=== PATIENT | female | born 1995 | race Two or more races ===

== ENCOUNTER 2020-11-19 23:02 | Emergency (ER) | payer SELFPAY ==
[~2020-11-19] VITALS: Ht 157.5 cm; Wt 84.5 kg
[2020-11-20 00:21] LABS: BASO # 0.1 x10^3/uL (0.0-0.2); BASO % 1 % (0-3); EOS # 0.2 x10^3/uL (0.0-0.7); EOS % 2 % (0-3); HEMATOCRIT 38.8 % (36.0-47.0); LYMPH # 1.5 x10^3/uL (1.0-4.8); LYMPH % 18 % (24-48); MEAN CORPUSCULAR HEMOGLOBIN 28 pg (25-35); MEAN CORPUSCULAR HGB CONC 34 g/dL (31-37); MEAN CORPUSCULAR VOLUME 84 fL (79-100); MONO # 0.6 x10^3/uL (0.0-1.1); MONO % 7 % (0-9); NEUT # 6.2 x10^3/uL (1.8-7.7); NEUT % 72 % (31-73); PLATELET COUNT 282 x10^3/uL (140-400); RED BLOOD COUNT 4.64 x10^6/uL (3.50-5.40); WHITE BLOOD COUNT 8.5 x10^3/uL (4.0-11.0)
[2020-11-20 00:26] LABS: CREATININE 0.9 mg/dL (0.6-1.0); GFR 75.1; POTASSIUM 3.8 mmol/L (3.5-5.1)
[2020-11-20] MEDS ORDERED: IV NORMAL SALINE 1000ML BAG 1,000 ML IV ONE (00:30)
[2020-11-20 00:33] LABS: ALBUMIN 3.8 g/dL (3.4-5.0); TOTAL BILIRUBIN 0.2 mg/dL (0.2-1.0); TOTAL PROTEIN 7.7 g/dL (6.4-8.2)
--- NOTE | 2020-11-20 00:54 | RAD ---
First trimester OB ultrasound dated 11/12/2020. No comparison available. CLINICAL INDICATION: Pelvic pain and vaginal bleeding. FINDINGS: Gestational sac within the endometrial canal without clear evidence of pole or cardiac activity . The mean sac diameter is estimated at 0.82 cm, correlating with a 5 week 4 day gestation. Yolk sac is visualized. No subchorionic collection. Uterus measures 9.8 x 5.4 x 4.8 cm. No focal uterine mass. Right ovary measures 3.2 x 2.2 x 1.9 cm. L eft ovary measures 2.7 x 1.1 x 1.0 cm. Normal color Doppler flow. No adnexal mass or free fluid. IMPRESSION: 1. Gestational sac and yolk sac identified within the endometrial canal. There is no discernible feta l pole or cardiac activity this time. This most likely represents a early viable IUP, although blight ed ovum is not excluded. Recommend correlation with beta-hCG values and follow-up imaging if indicate d. 2. No apparent adnexal mass or free fluid. Electronically signed by: Otto Chaney MD (11/20/2020 12:52 AM) [facility]
--- NOTE | 2020-11-20 01:02 | PHYS DOC ---
Past Medical History Past Medical History: No Pertinent History Past Surgical History: No Surgical History Smoking Status: Former Smoker Alcohol Use: None General Adult EDM: Chief Complaint: ABDOMINAL PAIN HPI: HPI: Patient is a 25 year old female who presented to ER due to low abdominal pain for 2 days. Today she noticed some blood in her urine and when she wiped she noticed some blood on the tissue. Patient says she is about 6 weeks her last menstrual period was on 10/09/2020. This is her second . Patient is scheduled to see her [facility] doctor next Wednesday. Patient denies any fever, no nausea vomiting, no chest pain, no trouble breathing. Review of Systems: Review of Systems: Constitutional: Denies fever or chills. [] Eyes: Denies change in visual acuity. [] HENT: Denies nasal congestion or sore throat. [] Respiratory: Denies cough or shortness of breath. [] Cardiovascular: Denies chest pain or edema. [] GI: Positive for no abdominal pain, no nausea vomiting : Positive for blood in his urine Musculoskeletal: Denies back pain or joint pain. [] Integument: Denies rash. [] Neurologic: Denies headache, focal weakness or sensory changes. [] Endocrine: Denies polyuria or polydipsia. [] Lymphatic: Denies swollen glands. [] Psychiatric: Denies depression or anxiety. [] Heart Score: C/O Chest Pain: N/A Risk Factors: Risk Factors: DM, Current or recent (<one month) smoker, HTN, HLP, family hist ory of CAD, obesity. Risk Scores: Score 0 - 3: 2.5% MACE over next 6 weeks - Discharge Home Score 4 - 6: 20.3% MACE over next 6 weeks - Admit for Clinical Observation Score 7 - 10: 72.7% MACE over next 6 weeks - Early Invasive Strategies Current Medications: Current Medications Medications (Trade) Dose Ordered Sig/Kam Start Time Stop Time Status Last Admin Dose Admin Sodium Chloride 1,000 ml @ 1,000 mls/hr 1X ONCE 11/20/20 00:30 11/20/20 01:29 11/20/20 00:30 1,000 MLS/HR Allergies: Allergies: Allergies Coded Allergies Type Severity Reaction Last Updated Verified No Known Drug Allergies 11/19/20 No Physical Exam: PE: Constitutional: Well developed, well nourished, no acute distress, non-toxic appearance. [] HENT: Normocephalic, atraumatic, bilateral external ears normal, oropharynx moist, no oral exudates, nose normal. [] Eyes: PERRLA, EOMI, conjunctiva normal, no discharge. [] Neck: Normal range of motion, no tenderness, supple, no stridor. [] Cardiovascular:Heart rate regular rhythm, no murmur [] Lungs & Thorax: Bilateral breath sounds clear to auscultation [] Abdomen: Bowel sounds normal, soft, no tenderness, no masses, no pulsatile masses. [] Skin: Warm, dry, no erythema, no rash. [] Back: No tenderness, no CVA tenderness. [] Extremities: No tenderness, no cyanosis, no clubbing, ROM intact, no edema. [] Neurologic: Alert and oriented X 3, normal motor function, normal sensory function, no focal deficits noted. [] Psychologic: Affect normal, judgement normal, mood normal. [] Current Patient Data: Labs: Laboratory Tests Test 11/19/20 23:20 11/20/20 00:11 POC Urine HCG, Qualitative Hcg positive (Negative) White Blood Count 8.5 x10^3/uL (4.0-11.0) Red Blood Count 4.64 x10^6/uL (3.50-5.40) Hemoglobin 13.0 g/dL (12.0-15.5) Hematocrit 38.8 % (36.0-47.0) Mean Corpuscular Volume 84 fL (79-100) Mean Corpuscular Hemoglobin 28 pg (25-35) Mean Corpuscular Hemoglobin Concent 34 g/dL (31-37) Red Cell Distribution Width 15.0 % (11.5-14.5) H Platelet Count 282 x10^3/uL (140-400) Neutrophils (%) (Auto) 72 % (31-73) Lymphocytes (%) (Auto) 18 % (24-48) L Monocytes (%) (Auto) 7 % (0-9) Eosinophils (%) (Auto) 2 % (0-3) Basophils (%) (Auto) 1 % (0-3) Neutrophils # (Auto) 6.2 x10^3/uL (1.8-7.7) Lymphocytes # (Auto) 1.5 x10^3/uL (1.0-4.8) Monocytes # (Auto) 0.6 x10^3/uL (0.0-1.1) Eosinophils # (Auto) 0.2 x10^3/uL (0.0-0.7) Basophils # (Auto) 0.1 x10^3/uL (0.0-0.2) Maternal Serum HCG Beta Subunit 5032 mIU/mL (0-5) H Sodium Level 141 mmol/L (136-145) Potassium Level 3.8 mmol/L (3.5-5.1) Chloride Level 105 mmol/L (98-107) Carbon Dioxide Level 27 mmol/L (21-32) Anion Gap 9 (6-14) Blood Urea Nitrogen 10 mg/dL (7-20) Creatinine 0.9 mg/dL (0.6-1.0) Estimated GFR (Cockcroft-Gault) 75.1 BUN/Creatinine Ratio 11 (6-20) Glucose Level 108 mg/dL (70-99) H Calcium Level 9.0 mg/dL (8.5-10.1) Total Bilirubin 0.2 mg/dL (0.2-1.0) Aspartate Amino Transferase (AST) 11 U/L (15-37) L Alanine Aminotransferase (ALT) 23 U/L (14-59) Alkaline Phosphatase 62 U/L (46-116) Total Protein 7.7 g/dL (6.4-8.2) Albumin 3.8 g/dL (3.4-5.0) Albumin/Globulin Ratio 1.0 (1.0-1.7) Laboratory Tests 11/20/20 00:11 Laboratory Tests 11/20/20 00:11 Vital Signs: Vital Signs Date Time Temp Pulse Resp B/P (MAP) Pulse Ox O2 Delivery O2 Flow Rate FiO2 11/19/20 23:33 98.8 75 20 142/73 (96) 97 Room Air 98.8 EKG: EKG: [] Radiology/Procedures: Radiology/Procedures: [][facility] [address] [place] [address] IMAGING REPORT Signed PATIENT: ALBERT BASS VACCOUNT: [id number] : 1995 LOCATION: ER AGE: 25 SEX: F EXAM STATUS: REG ER ORD. PHYSICIAN: YIN KEATING DO REASON: pelvic pain, vaginal bleeding, 6-7 weeks PROCEDURE: OB TRANSVAG First trimester OB ultrasound dated 11/12/2020. No comparison available. CLINICAL INDICATION: Pelvic pain and vaginal bleeding. FINDINGS: Gestational sac within the endometrial canal without clear evidence of pole or cardiac activity. The mean sac diameter is estimated at 0.82 cm, correlating with a 5 week 4 day gestation. Yolk sac is visualized. No subchorionic collection. Uterus measures 9.8 x 5.4 x 4.8 cm. No focal uterine mass. Right ovary measures 3.2 x 2.2 x 1.9 cm. Left ovary measures 2.7 x 1.1 x 1.0 cm. Normal color Doppler flow. No adnexal mass or free fluid. IMPRESSION: 1. Gestational sac and yolk sac identified within the endometrial canal. There is no discernible pole or cardiac activity this time. This most likely represents a early viable IUP, although blighted ovum is not excluded. Recommend correlation with beta-hCG values and follow-up imaging if indicated. 2. No apparent adnexal mass or free fluid. Electronically signed by: Otto Chaney MD (11/20/2020 12:52 AM) [facility] [place] and SIGNED BY: OTTO CHANEY MD DATE: 11/20/20 [id number] 0 Course & Med Decision Making: Course & Med Decision Making Pertinent Labs and Imaging studies reviewed. (See chart for details) Patient is a 25-year-old female who presented to ER due to low abdominal pain. Patient is 6 weeks by dates, ultrasound did not show a heart tone yet, there is a gestational sac. Patient blood type is a positive per report. Patient denies any vaginal bleeding at this time. Patient will be discharged home, she is scheduled to see [facility] doctor this week Yari Disclaimer: Yari Disclaimer: This electronic medical record was generated, in whole or in part, using a voice recognition dictation system. Departure Departure Impression: Primary Impression: Abdominal pain in Additional Impression: Threatened in early Condition: STABLE Referrals: NO PCP (PCP) please follow up with your [facility] DOCTOR OR THIS PROPAGATOR DOCTOR THIS WEEK FOR REEVALUATION OF YOUR HCG LEVEL. KRYSTA TUCKER Jr, MD Patient Instructions: Abdominal Pain During , Threatened Miscarriage Additional Instructions: Thank you for visiting our Emergency Department. We appreciate you trusting us with your care. If any additional problems come up don't hesitate to return to visit us. Please follow up with your primary care provider so they can plan additional care if needed and know about the problem that you had. If symptoms worsen come back to the Emergency Department. Any concerning symptoms that start such as chest pain, shortness of air, weakness or numbness on one side of the body, running high fevers or any other concerning symptoms return to the ER. YIN KEATING DO Nov 20, 2020 01:02
[2020-11-20 01:07] LABS: BILIRUBIN,URINE NEGATIVE (NEG); CLARITY,URINE CLEAR; COLOR,URINE YELLOW; NITRITE,URINE NEGATIVE (NEG); PROTEIN,URINE NEGATIVE (NEG-TRACE); UROBILINOGEN,URINE 0.2 mg/dL (0.2 mg/dL)
[2020-11-20 01:15] LABS: AMORPHOUS SEDIMENT,UR PRESENT /HPF; BACTERIA,URINE 0 /HPF (0-FEW); RBC,URINE 0 /HPF (0-2); WBC,URINE 0 /HPF (0-4)
[2020-11-20 02:01] VITALS: BP 134/65
== END 2020-11-20 02:13 | disposition home or self-care (01) ==
LOC: ER 23:02
DX: O20.0 Threatened abortion (principal); R10.30 Lower abdominal pain, unspecified; R31.9 Hematuria, unspecified; Z87.891 Personal history of nicotine dependence; Z3A.01 Less than 8 weeks gestation of pregnancy
CPT/HCPCS: 36415; 76817; 80053; 81001; 81025; 84702; 85025; 96360; 99284; J7030